=== PATIENT | male | born 1960 | race Caucasian/White ===

== ENCOUNTER 2017-06-19 07:51 | Outpatient (RCR) | payer BC | END 2017-09-17 | disposition home or self-care (01) | LOC: DSME 07:51 | PROVIDERS: ATTEND Nurse Practitioner Family | DX: E11.9 Type 2 diabetes mellitus without complications (principal); Z79.84 Long term (current) use of oral hypoglycemic drugs ==

== ENCOUNTER 2017-06-26 11:30 | Outpatient (CLI) | payer BC ==
[~2017-06-26] VITALS: Ht 185.4 cm; Wt 113.9 kg
== END 2017-06-26 12:24 ==
LOC: PREOP 11:30
PROVIDERS: ATTEND Surgery
DX: Z01.818 Encounter for other preprocedural examination (principal)

== ENCOUNTER 2019-01-12 05:45 | Outpatient (CLI) | payer BC ==
[~2019-01-12] VITALS: Ht 186 cm; Wt 116.8 kg
[2019-01-12] MEDS ORDERED: METF-397 PO (12:17)
== END 2019-01-12 12:19 ==
LOC: PREOP 05:45
PROVIDERS: ATTEND Internal Medicine
DX: Z01.818 Encounter for other preprocedural examination (principal)

== ENCOUNTER 2019-01-16 08:52 | Day surgery (SDC) | payer BC ==
--- NOTE | 2019-01-06 21:04 | HISTORY AND PHYSICAL ---
DATE OF SERVICE: COLONOSCOPY HISTORY AND PHYSICAL DATE OF ADMISSION: 01/16/2019. HISTORY: The patient is a 58-year-old white male referred by Dr. Shelton for his first screening colonoscopy. He is deemed to be of average risk. He is not aware of any family history of colon cancer or colon polyps. He denies any bowel habit change. On rare occasions, he has had some small volume bright red blood per rectum that has been over six months since his last occurrence and he has attributed to hemorrhoids. He has had no abdominal pain, rectal pain or problems with constipation or diarrhea. PAST MEDICAL HISTORY: Significant for type 2 diabetes mellitus for which he takes metformin 500 mg b.i.d., his only prescription medication. PAST SURGICAL HISTORY: He reports no past surgeries. He has had several dental extractions without bleeding problems or difficulty. He takes no antiplatelets or nonsteroidal medication. SOCIAL HISTORY: He is employed with no past smoking and only occasional alcohol intake. FAMILY HISTORY: Father is living at the age of 82, no significant health problems. Mother living at the age of 78 and has had significant problems with diverticular disease and several perforations that have required surgical resection. REVIEW OF SYSTEMS: CONSTITUTIONAL: The patient denies night sweats, chills, fever or change in weight. GASTROINTESTINAL: As noted in the HPI. PULMONARY: He denies cough, dyspnea on exertion or at rest or wheezing. CARDIOVASCULAR: He denies orthopnea, PND, pedal edema, syncope, presyncope or palpitations. PHYSICAL EXAMINATION: GENERAL: Reveals a pleasant overweight white male in no acute distress. VITAL SIGNS: Weight is 257.4 pounds. Blood pressure 118/80. HEENT: Unremarkable. He has a Mallampati 2 pharyngeal configuration. CHEST: Clear to auscultation. CARDIOVASCULAR: Revealed a regular rate and rhythm without murmur, S3 or S4. ABDOMEN: Soft, supple without mass, organomegaly or tenderness. A small umbilical hernia easily reducible as noted with no tenderness. EXTREMITIES: Reveal no cyanosis, clubbing or edema. ASSESSMENT AND PLAN: The patient is set up for screening colonoscopy on 01/16/2019. Prep instructions with the Suprep kit were given and questions were answered. I thank you for the referral of this pleasant gentleman. Job ID: [id number] DocumentID: [id number] Dictated Date: 01/02/2019 09:02:11 Associate Engineer Date: 01/02/2019 09:19:52 Dictated By: SAPNA MCNULTY MD
[~2019-01-16] VITALS: Ht 186 cm; Wt 116.8 kg
[2019-01-16] VITALS (11 sets, daily range): BP systolic 106–123; BP diastolic 68–80
[~2019-01-16 08:52] MED LIST: METF-397 PO
[2019-01-16] MEDS ORDERED: D5 LR IV SOLUTION 1,000 ML IV ONE (09:22)
[2019-01-16] MEDS ORDERED: D5 LR IV SOLUTION 1,000 ML IV STA (09:34)
[2019-01-16] MEDS ORDERED: fentaNYL INJECTION 100 MCG/2 ML AMP IVP ONE (09:45)
[2019-01-16] MEDS ORDERED: fentaNYL INJECTION 100 MCG/2 ML AMP ONE (10:12)
[2019-01-16] MEDS ORDERED: LIDOCAINE JELLY 2% 6 ML SYRINGE ONE (10:12)
[2019-01-16] MEDS ORDERED: MIDAZOLAM 2 MG/2 ML (VERSED) VIAL ONE ×2 (10:12→10:23)
--- NOTE | 2019-01-16 10:24 | Pre-Op Note & Conscious Sedat ---
Pre-Operative Progress Note H&P Reviewed The H&P was reviewed, patient examined and no changes noted. Date H&P Reviewed: Jan 16, 2019 Time H&P Reviewed: 10:10 Conscious Sedation Pre-Proced ASA Score 2 For ASA 3 and 4: Consider anesthesia and medical clearance. Also, for patients with a history of failed moderate sedation consider anesthesia. Airway Lungs Heart ASA score ASA 1: a normal healthy patient ASA 2: a patient with a mild systemic disease (mid diabetes, controlled hypertension, obesity ASA 3: a patient with a severe systemic disease that limits activity (angina, COPD, prior Myocardial infarction) ASA 4: a patient with an incapacitating disease that is a constant threat to life (CHF, renal failure) ASA 5: a moribund patient not expected to survive 24 hrs. (ruptured aneurysm) ASA 6: a declared brain- patient whose organs are being harvested. For emergent operations, add the letter E after the classification Mallampati Classification Grade 2 Sedation Plan Analgesia, Amnesia, Plan communicated to team members, Discussed options with patient/fam, Discussed risks with patient/fam The patient is an appropriate candidate to undergo the planned procedure, sedation, and anesthesia. The patient immediately re-assessed prior to indication. SAPNA MCNULTY MD Jan 16, 2019 10:24 POS
[2019-01-16] MEDS: MIDAZOLAM 5 MG/5 ML (VERSED) VIAL IV PRN ×2 (10:30→10:33)
--- NOTE | 2019-01-16 21:58 | OPERATIVE REPORT ---
DATE OF SERVICE: COLONOSCOPY SUMMARY INDICATION FOR THE PROCEDURE: Screening colonoscopy. DESCRIPTION OF PROCEDURE: The patient was placed in the left lateral decubitus position. Prior to undergoing colonoscopy, digital rectal evaluation was performed. Anal sphincter tone was normal and the perianal reflexes intact. Prostate is normal in size, anodular, nontender to digital inspection. No abnormalities, no additional inspection of the anal canal or distal rectal vault. The colonoscope was then inserted into the rectum and under direct visualization advanced to cecum. The cecum was identified by identification of the ileocecal valve and cecal strap. Photographic documentation was obtained. Careful inspection was made as colonoscope withdrawn. The patient tolerated the procedure well. FINDINGS: There was no evidence for internal or external hemorrhoids. Present in the mid rectum was a hyperplastic-appearing polyp was photographed and biopsied and ablated with no subsequent blood loss. The remainder of the rectum, sigmoid colon, descending colon, splenic flexure and transverse colon were unremarkable. Present in the mid ascending colon was a sessile 4 x 5 mm polyp that was photographed and biopsied and ablated and submitted for histopathology. The remainder of the ascending colon and cecum were unremarkable. ASSESSMENT: Two small polyps were removed, one from the mid rectum and the other from the proximal ascending colon via hot forceps. Neither polyp had visual features to suggest underlying adenomas. As long as there are no surprise on histopathology report, we would advise consideration for repeat screening colonoscopy in 10 years as the patient reports no family history for colon cancer. I thank you for the referral of this pleasant gentleman. Job ID: [id number] DocumentID: [id number] Dictated Date: 01/16/2019 11:48:49 Trimmer Sawyer Date: 01/16/2019 21:57:58 Dictated By: SAPNA MCNULTY MD
--- OUTSIDE RECORDS SUMMARY | 2019-02-11 11:05 | XMS REPORT | Continuity of Care Document ---
Author Organization Unknown Address Unknown Phone Unavailable Allergies Active Description Code Type Severity Reaction Onset Reported/Identified Relationship to Patient Clinical Status Yes No Known Drug Allergies [id number] Drug Allergy Unknown N/A 06/26/2017 Medications There is no data. Problems Date Dx Coded Attending Type Code Diagnosis Diagnosed By 06/25/2017 JACKIE WHATLEY, LES Sharma Ot Z01.818 ENCOUNTER FOR OTHER PREPROCEDURAL EXAMIN 06/26/2017 JACKIE WHATLEY, LES Sharma Ot Z01.818 ENCOUNTER FOR OTHER PREPROCEDURAL EXAMIN 06/26/2017 JACKIE WHATLEY, LES Sharma Ot Z01.818 ENCOUNTER FOR OTHER PREPROCEDURAL EXAMIN 06/27/2017 JACKIE WHATLEY, LES Sharma Ot Z01.818 ENCOUNTER FOR OTHER PREPROCEDURAL EXAMIN 06/27/2017 JACKIE WHATLEY, LES Sharma Ot Z01.818 ENCOUNTER FOR OTHER PREPROCEDURAL EXAMIN 07/24/2017 ANDREE HUNT CUSTOMS CONSULTANT Ot E11.9 TYPE 2 DIABETES MELLITUS WITHOUT COMPLIC 07/24/2017 ANDREE HUNT CUSTOMS CONSULTANT Ot Z79.84 PIPELAYING [employer]TER (CURRENT) USE OF ORAL HYPOGLYC 09/17/2017 ANDREE HUNT CUSTOMS CONSULTANT Ot E11.9 TYPE 2 DIABETES MELLITUS WITHOUT COMPLIC 09/17/2017 ANDREE HUNT CUSTOMS CONSULTANT Ot Z79.84 [facility] (CURRENT) USE OF ORAL HYPOGLYC 08/27/2018 Ot E11.9 TYPE 2 DIABETES MELLITUS WITHOUT COMPLIC 08/27/2018 Ot Z79.84 [facility] (CURRENT) USE OF ORAL HYPOGLYC 09/05/2018 Ot E11.9 TYPE 2 DIABETES MELLITUS WITHOUT COMPLIC 09/05/2018 Ot Z79.84 RALPH [facility] TERM (CURRENT) USE OF ORAL HYPOGLYC 2019 SAPNA MCNULTY MD Ot Z01.818 ENCOUNTER FOR OTHER PREPROCEDURAL EXAMIN 01/13/2019 SAPNA MCNULTY MD Ot Z01.818 ENCOUNTER FOR OTHER PREPROCEDURAL EXAMIN 01/16/2019 Ot E11.9 TYPE 2 DIABETES MELLITUS WITHOUT COMPLIC 01/16/2019 Ot Z79.84 RALPH G TERM (CURRENT) USE OF ORAL HYPOGLYC Procedures There is no data. Results There is no data. Encounters ACCT No. Visit Date/Time Discharge Status Pt. Type Provider Facility Loc./Unit Complaint [id number] 01/16/2019 08:52:00 11:30:00 DIS Outpatient SAPNA MCNULTY MD [facility] ENDO SCREENING [id number] 2019 05:45:00 12:19:00 DIS Outpatient SAPNA MCNULTY MD [facility] PREOP COLONOSCOPY [id number] 07/01/2017 08:30:00 23:59:59 CLS Preadmit LES MEJIA MD [facility] ENDO SCREENING [id number] 06/26/2017 11:30:00 12:24:00 DIS Outpatient LES MEJIA MD [facility] PREOP COLONOSCOPY [id number] 06/19/2017 07:51:00 23:59:59 CLS Outpatient ANDREE HUNT APRN [facility] DSME DIABETES MELLITUS [id number] 03/14/2017 12:03:00 23:59:59 CLS Preadmit ROSA MIMS MD [facility] REHAB LT SHOULDER PAIN; HOME EXERCISE [id number] 09/18/2017 08:00:00 Document Registration
== END 2019-01-16 11:30 | disposition home or self-care (01) ==
LOC: ENDO 08:52
PROVIDERS: ATTEND Internal Medicine
DX: Z12.11 Encounter for screening for malignant neoplasm of colon (principal); K62.1 Rectal polyp; K63.5 Polyp of colon; E11.9 Type 2 diabetes mellitus without complications; Z79.84 Long term (current) use of oral hypoglycemic drugs; Z83.79 Family history of other diseases of the digestive system
CPT/HCPCS: 88305

== ENCOUNTER 2020-10-25 13:42 | Emergency (ER) | payer BC ==
[~2020-10-25] VITALS: Ht 185 cm; Wt 111.0 kg
[2020-10-25] MEDS ORDERED: NS IV 1000 ML 1,000 ML IV STA (13:53)
[2020-10-25 14:00] LABS: BILIRUBIN,URINE NEGATIVE (NEGATIVE); CLARITY,URINE CLEAR; COLOR,URINE YELLOW; GLUCOSE, URINE (UA) NEGATIVE (NEGATIVE); KETONES,URINE NEGATIVE (NEGATIVE); LEUKOCYTE ESTERASE ,URINE NEGATIVE (NEGATIVE); NITRITE,URINE NEGATIVE (NEGATIVE); PH,URINE 5.5 (5-9); PROTEIN,URINE NEGATIVE (NEGATIVE)
--- NOTE | 2020-10-25 14:10 | ED Back Pain ---
General Chief Complaint: Back Problems Stated Complaint: BACK PAIN Source of Information: Patient History of Present Illness Date Seen by Provider: Oct 25, 2020 Time Seen by Provider: 13:43 Initial Comments 60-year-old male presenting with complaints of right flank pain wrapping around to his abdomen. He states that he had some similar symptoms for 5 days ago but they were relieved with Gas-X and belching. Today the symptoms started as a returning back from [place]. His pain kept getting worse and worse as he was driving to the point that he had to veneer puller his drive. At 1 point he was on his hands and knees in the back of the vehicle because I was still in position and felt comfortable. His pain did improve some with belching. Then it became unbearable where he had to have his veneer puller and they called EMS to bring him to the ER. He has no black or tarry stools. He denies any blood in the urine but states it has been more dark especially few days ago after the previous episode. He denies any nausea or vomiting. He denies any history of surgery on his belly and has no history of kidney stones for himself or his family that he knows of. No fever or chills. His pain was over [address] but currently is discomfort that he rates at 1 or 2 out of 10. He did receive narcotic medication from EMS to help with his pain. Severity: Severe Method of Injury: Unknown Associated Symptoms: No muscle spasms, No fever, No weakness, No numbness in legs/feet, No tingling in legs/feet, No sensory/motor loss, No lower back pain, No loss of bladder control, No loss of bowel control Allergies and Home Medications Allergies Coded Allergies: No Known Drug Allergies (Unverified , 06/26/17) Patient Home Medication List Home Medication List Reviewed: Yes Hydrocodone/Acetaminophen (Hydrocodone-Acetamin 5-325 mg) 1 Each Tablet, 1 TAB PO Q4H PRN for PAIN-SEVERE (8-10) Prescribed by: SERGO JACOBSEN on 10/25/20 1520 Metformin HCl (Metformin HCl) 500 Mg Tablet, 500 MG PO BID, (Reported) Entered as Reported by: MARQUES HOWELL on 01/12/19 1217 Ondansetron (Ondansetron Odt) 4 Mg Tab.rapdis, 4 MG PO Q6H PRN for NAUSEA/VOMITING Prescribed by: SERGO JACOBSEN on 10/25/20 151 Tamsulosin HCl (Flomax) 0.4 Mg Cap, 0.4 MG PO DAILY Prescribed by: SERGO JACOBSEN on 10/25/20 151 Review of Systems Constitutional: No chills, No fever EENTM: no symptoms reported Respiratory: no symptoms reported Cardiovascular: no symptoms reported Gastrointestinal: see HPI Genitourinary: see HPI Musculoskeletal: see HPI Skin: No change in color Psychiatric/Neurological: No Symptoms Reported Past Qymsfzs-Tbcilz-Lyzdep Hx Patient Social History Tobacco Use?: No Use of E-Cig and/or Vaping dev: No Substance use?: No Alcohol Use?: No Pt feels they are or have been: No Immunizations Up To Date First/Initial COVID19 Vaccinat: Mar 2020 Seasonal Allergies Seasonal Allergies: No Past Medical History Surgeries: No Respiratory: No Cardiac: No Neurological: No Reproductive Disorders: No Sexually Transmitted Disease: No HIV/AIDS: No Genitourinary: No Gastrointestinal: No Musculoskeletal: No Endocrine: Yes Diabetes, Non-Insulin dep HEENT: No Loss of Vision: Bilateral Hearing Impairment: Denies Cancer: No Psychosocial: No Integumentary: No Blood Disorders: No Adverse Reaction/Blood Tranf: No (N/A) Physical Exam Vital Signs Vital Signs - First Documented 10/25/20 13:54 Temp 36.0 Pulse 88 Resp 16 B/P (MAP) 152/81 (104) Pulse Ox 94 O2 Delivery Room Air Capillary Refill : Height, Weight, BMI Height: 6'1.00" Weight: 251lbs. 0.0oz. 113.385026vl; 33.76 BMI Method: General Appearance: No Apparent Distress, WD/WN Neck: Full Range of Motion, Normal Inspection, Non Tender, Supple Cardiovascular: Regular Rate, Rhythm, Normal Peripheral Pulses Respiratory: Chest Non Tender, Lungs Clear, Normal Breath Sounds, No Accessory Muscle Use, No Respiratory Distress Gastrointestinal: Normal Bowel Sounds, No Pulsatile Mass, Non Tender, Soft Extremity: Normal Capillary Refill, Normal Inspection, No Pedal Edema Neurologic/Psychiatric: Alert, Oriented x3 Skin: Normal Color, Warm/Dry Progress/Results/Core Measures Results/Orders Lab Results Laboratory Tests Test 10/25/20 13:47 10/25/20 13:51 Range/Units Urine Color YELLOW Urine Clarity CLEAR Urine pH 5.5 5-9 Urine Specific [place] >=1.030 1.016-1.022 Urine Protein NEGATIVE NEGATIVE Urine Glucose (UA) NEGATIVE NEGATIVE Urine Ketones NEGATIVE NEGATIVE Urine Nitrite NEGATIVE NEGATIVE Urine Bilirubin NEGATIVE NEGATIVE Urine Urobilinogen 0.2 < = 1.0 MG/DL Urine Leukocyte Esterase NEGATIVE NEGATIVE Urine RBC (Auto) 3+ H NEGATIVE Urine RBC 2-5 H /HPF Urine WBC 0-2 /HPF Urine Squamous Epithelial Cells RARE /HPF Urine Crystals NONE /LPF Urine Bacteria NEGATIVE /HPF Urine Casts NONE /LPF Urine Mucus SMALL H /LPF Urine Culture Indicated NO White Blood Count 8.1 4.3-11.0 10^3/uL Red Blood Count 4.65 4.30-5.52 10^6/uL Hemoglobin 14.4 13.3-17.7 g/dL Hematocrit 41 40-54 % Mean Corpuscular Volume 87 80-99 fL Mean Corpuscular Hemoglobin 31 25-34 pg Mean Corpuscular Hemoglobin Concent 36 32-36 g/dL Red Cell Distribution Width 13.0 10.0-14.5 % Platelet Count 291 130-400 10^3/uL Mean Platelet Volume 9.5 9.0-12.2 fL Immature Granulocyte % (Auto) 0 % Neutrophils (%) (Auto) 66 42-75 % Lymphocytes (%) (Auto) 21 12-44 % Monocytes (%) (Auto) 10 0-12 % Eosinophils (%) (Auto) 2 0-10 % Basophils (%) (Auto) 1 0-10 % Neutrophils # (Auto) 5.4 1.8-7.8 X 10^3 Lymphocytes # (Auto) 1.7 1.0-4.0 X 10^3 Monocytes # (Auto) 0.8 0.0-1.0 X 10^3 Eosinophils # (Auto) 0.1 0.0-0.3 10^3/uL Basophils # (Auto) 0.1 0.0-0.1 10^3/uL Immature Granulocyte # (Auto) 0.0 0.0-0.1 10^3/uL Sodium Level 141 135-145 MMOL/L Potassium Level 4.3 3.6-5.0 MMOL/L Chloride Level 104 98-107 MMOL/L Carbon Dioxide Level 26 21-32 MMOL/L Anion Gap 11 5-14 MMOL/L Blood Urea Nitrogen 18 7-18 MG/DL Creatinine 0.83 0.60-1.30 MG/DL Estimat Glomerular Filtration Rate 94 BUN/Creatinine Ratio 22 Glucose Level 124 H 70-105 MG/DL Calcium Level 9.4 8.5-10.1 MG/DL Corrected Calcium 8.5-10.1 MG/DL Total Bilirubin 0.4 0.1-1.0 MG/DL Aspartate Amino Transf (AST/SGOT) 22 5-34 U/L Alanine Aminotransferase (ALT/SGPT) 20 0-55 U/L Alkaline Phosphatase 80 40-136 U/L Total Protein 7.5 6.4-8.2 GM/DL Albumin 4.6 H 3.2-4.5 GM/DL Lipase 24 8-78 U/L My Orders Orders - SERGO JACOBSEN MD Comprehensive Metabolic Panel (10/25/20 13:53) Lipase (10/25/20 13:53) Ua Culture If Indicated (10/25/20 13:53) Ed Iv/Invasive Line Start (10/25/20 13:53) Cbc With Automated Diff (10/25/20 13:53) Ct Abdomen/Pelvis Wo (10/25/20 13:53) Ns Iv 1000 Ml (Sodium Chloride 0.9%) (10/25/20 13:53) Ketorolac Injection (Toradol Injection) (10/25/20 15:08) Tamsulosin Capsule (Flomax Capsule) (10/25/20 15:08) Hydrocodone/Apap 5/325 Tablet (Lortab 5 (10/25/20 15:08) Fentanyl Inj (Sublimaze Injection) (10/25/20 15:08) Strain Urine (10/25/20 15:09) Vital Signs/I&O 10/25/20 10/25/20 10/25/20 13:54 15:19 15:42 Temp 36.0 36.0 36.0 Pulse 88 88 Resp 16 16 B/P (MAP) 152/81 (104) 152/81 Pulse Ox 94 94 O2 Delivery Room Air Room Air Progress Progress Note #1: Progress Note Obtain basic labs as well as urinalysis. Give IV fluids for hydration. CT scan of abdomen pelvis to evaluate his right flank pain to see if he might have a kidney stone, colitis, diverticulitis, appendicitis, pyelonephritis. If his p ain starts to back will try dose of Toradol. Progress Note #2: Progress Note Updated patient on results and findings of 4 mm kidney stone in the ureter on the right side. There were no signs of infection in his urinalysis. Patient stated he was started to have some pain, back and his IV fluids and just finished infusing. We will give a dose of Toradol, fentanyl, hydrocodone, Flomax. Counseled on follow-up and return precautions. Sent prescriptions to the pharmacy for outpatient meds of hydrocodone, Zofran if needed for nausea, Flomax. Given information about Dr. Valente with Urology. Advised that he also h as a stone sitting in kidney on left side but that it may never give him pain or may hurt if it starts moving into ureter. Diagnostic Imaging Diagonstic Imaging: CT Plain Films/CT/US/NM/MRI: abdomen, pelvis Comments NAME: SAUD MENDO[facility] REC#: [id number] PT STATUS: REG ER : 1960 PHYSICIAN: SERGO JACOBSEN MD ADMIT DATE: 10/25/20/ER FS Draft Date of Exam:10/25/20 CT ABDOMEN/PELVIS WO PROCEDURE: CT abdomen and pelvis without contrast. TECHNIQUE: Multiple contiguous axial images were obtained through the abdomen and pelvis without the use of intravenous contrast. Auto Exposure Controls were utilized during the CT exam to meet ALARA standards for radiation dose reduction. INDICATION: Severe right flank pain. COMPARISON: No prior studies are available for comparison. FINDINGS: The lung bases are clear. The liver and gallbladder are unremarkable. There is no biliary ductal dilatation. The pancreas and spleen are unremarkable. No adrenal mass is detected. The right kidney is without evidence of intrarenal calculi. There is a calculus in the lower pole of the left kidney measuring 7 mm. This appears nonobstructing. There is some mild right-sided hydroureteronephrosis. This appears to be caused by 4 mm calculus at the junction of the proximal and mid ureter. The left ureter is unremarkable. The bladder is unremarkable. Aorta is nonaneurysmal. Bowel loops are nonobstructed. There is a fat-containing umbilical hernia. No free fluid or fluid collection is seen. Prostate is mildly enlarged. There are fat-containing inguinal hernias bilaterally. Bony structures are nonacute. IMPRESSION: 1. Nonobstructing left-sided nephrolithiasis. 2. 4 mm calculus at the junction of the proximal and mid right ureter, producing mild hydroureteronephrosis. 3. Fat-containing umbilical and bilateral inguinal hernias. 4. Prostatomegaly. Dictated on workstation # [id number] Dict: 10/25/20 1417 Trans: 10/25/20 1424 [id number] Interpreted by: CLEO BRAR MD Electronically signed by: Departure Impression Primary Impression: Renal colic on right side Additional Impressions: Right flank pain Ureteral calculus, right Dehydration Disposition: 01 HOME, SELF-CARE Condition: Stable Departure-Patient Inst. Decision time for Depature: 15:21 Referrals: JOSEPH LAZO MD (PCP/Family) Primary Care Physician BELKIS VALENTE MD Patient Instructions: Flank Pain ED, Kidney Stone Diet, How to Strain Your Urine, Kidney Stone, Adult ED Add. Discharge Instructions: Strain your urine to see when you pass the kidney stone. It will look like a grain of sand or anton of pepper. Use the pain medicine, Hydrocodone/Acetaminophen, to help keep your pain to a level that you can tolerate. You will have pain as the stone is moving and it is only shelter from the kidney to the bladder. Consider taking a laxative if you have to take very much of the narcotic pain medicine as it can cause your bowels to be constipated. Make sure to drink plenty of water and stay well hydrated. The Tamsulosin (Flomax) helps the ureter and prostate relax so the kidney stone can pass easier. Check with your doctor or Urologist, Dr. Valente, for continued pain or if not resolved after a few days. If you have worsening pain not controlled by your medicine, uncontrolled nausea and vomiting, fever over 101 F then seek medical care for further evaluation. All discharge instructions reviewed with patient and/or family. Voiced understanding. Scripts Ondansetron (Ondansetron Odt) 4 Mg Tab.rapdis 4 MG PO Q6H PRN for NAUSEA/VOMITING for 5 Days, #20 TAB 0 Refills Prov: SERGO JACOBSEN MD 10/25/20 Hydrocodone/Acetaminophen (Hydrocodone-Acetamin 5-325 mg) 1 Each Tablet 1 TAB PO Q4H PRN for PAIN-SEVERE (8-10) for 5 Days, #30 TAB 0 Refills Prov: SERGO JACOBSEN MD 10/25/20 Tamsulosin HCl (Flomax) 0.4 Mg Cap 0.4 MG PO DAILY for renal colic for 7 Days, #7 CAP 0 Refills Prov: SERGO JACOBSEN MD 10/25/20 SERGO JACOBSEN MD Oct 25, 2020 14:10
[2020-10-25 14:25] LABS: HEMATOCRIT 41 % (40-54); HEMOGLOBIN 14.4 g/dL (13.3-17.7); MEAN CORPUSCULAR HEMOGLOBIN 31 pg (25-34); MEAN CORPUSCULAR HGB CONC 36 g/dL (32-36); MEAN CORPUSCULAR VOLUME 87 fL (80-99); PLATELET COUNT 291 10^3/uL (130-400); WHITE BLOOD COUNT 8.1 10^3/uL (4.3-11.0)
--- NOTE | 2020-10-25 14:25 | Diagnostic Imaging Report ---
PROCEDURE: CT abdomen and pelvis without contrast. TECHNIQUE: Multiple contiguous axial images were obtained through the abdomen and pelvis without the use of intravenous contrast. Auto Exposure Controls were utilized during the CT exam to meet ALARA standards for radiation dose reduction. INDICATION: Severe right flank pain. COMPARISON: No prior studies are available for comparison. FINDINGS: The lung bases are clear. The liver and gallbladder are unremarkable. There is no biliary ductal dilatation. The pancreas and spleen are unremarkable. No adrenal mass is detected. The right kidney is without evidence of intrarenal calculi. There is a calculus in the lower pole of the left kidney measuring 7 mm. This appears nonobstructing. There is some mild right-sided hydroureteronephrosis. This appears to be caused by 4 mm calculus at the junction of the proximal and mid ureter. The left ureter is unremarkable. The bladder is unremarkable. Aorta is nonaneurysmal. Bowel loops are nonobstructed. There is a fat-containing umbilical hernia. No free fluid or fluid collection is seen. Prostate is mildly enlarged. There are fat-containing inguinal hernias bilaterally. Bony structures are nonacute. IMPRESSION: 1. Nonobstructing left-sided nephrolithiasis. 2. 4 mm calculus at the junction of the proximal and mid right ureter, producing mild hydroureteronephrosis. 3. Fat-containing umbilical and bilateral inguinal hernias. 4. Prostatomegaly. Dictated by: Dictated on workstation # [id number]
[2020-10-25 14:26] LABS: BASOPHILS # (AUTO) 0.1 10^3/uL (0.0-0.1); BASOPHILS % (AUTO) 1 % (0-10); EOSINOPHILS # (AUTO) 0.1 10^3/uL (0.0-0.3); EOSINOPHILS % (AUTO) 2 % (0-10); LYMPHOCYTES # (AUTO) 1.7 X 10^3 (1.0-4.0); LYMPHOCYTES % (AUTO) 21 % (12-44); MEAN PLATELET VOLUME 9.5 fL (9.0-12.2); MONOCYTES # (AUTO) 0.8 X 10^3 (0.0-1.0); MONOCYTES % (AUTO) 10 % (0-12); NEUTROPHILS # (AUTO) 5.4 X 10^3 (1.8-7.8); NEUTROPHILS % (AUTO) 66 % (42-75)
[2020-10-25 14:35] LABS: BACTERIA,URINE NEGATIVE /HPF; SQUAMOUS EPITHELIAL CELL,UR RARE /HPF; WBC,URINE 0-2 /HPF
[2020-10-25 14:37] LABS: CARBON DIOXIDE 26 MMOL/L (21-32); CHLORIDE 104 MMOL/L (98-107); SODIUM 141 MMOL/L (135-145)
[2020-10-25 14:38] LABS: ALANINE AMINOTRANSFERASE 20 U/L (0-55); ALBUMIN 4.6 GM/DL (3.2-4.5); ALKALINE PHOSPHATASE 80 U/L (40-136); BILIRUBIN,TOTAL 0.4 MG/DL (0.1-1.0); BUN/CREATININE RATIO 22; CALCIUM 9.4 MG/DL (8.5-10.1); CREATININE SERUM 0.83 MG/DL (0.60-1.30); GFR ESTIMATED 94; GLUCOSE 124 MG/DL (70-105); LIPASE 24 U/L (8-78); TOTAL PROTEIN 7.5 GM/DL (6.4-8.2)
[2020-10-25 14:42] LABS: POTASSIUM 4.3 MMOL/L (3.6-5.0)
[2020-10-25] MEDS ORDERED: HYDROcodone/APAP 5 MG/325 MG (LORTAB) TAB PO STA (15:08)
[2020-10-25] MEDS ORDERED: TAMSULOSIN 0.4 MG (FLOMAX) CAP PO STA (15:08)
[2020-10-25] MEDS ORDERED: KETOROLAC 30 MG/ML VIAL IVP STA (15:08)
[2020-10-25] MEDS ORDERED: fentaNYL INJ 100 MCG/2 ML AMP IVP STA (15:08)
[2020-10-25] MEDS ORDERED: ONDA4TAB11 PO (15:19)
[2020-10-25] MEDS ORDERED: TMSL.4C PO (15:19)
[2020-10-25] MEDS ORDERED: ACHD5005 PO (15:19)
[2020-10-25 15:42] VITALS: BP 152/81
[2020-10-26] MEDS ORDERED: CEPH500T PO (09:57)
[2020-10-26] MEDS ORDERED: ACHYD1T PO (09:57)
== END 2020-10-25 15:33 | disposition home or self-care (01) ==
LOC: EDUNIT# 13:42 → ER FS 13:44
DX: N13.2 Hydronephrosis with renal and ureteral calculous obstruction (principal); N23 Unspecified renal colic; E86.0 Dehydration; E11.9 Type 2 diabetes mellitus without complications; Z79.84 Long term (current) use of oral hypoglycemic drugs; Z79.899 Other long term (current) drug therapy
CPT/HCPCS: 36415; 74176; 80053; 81000; 83690; 85025

== ENCOUNTER 2020-10-26 08:20 | Emergency (ER) | payer BC ==
[~2020-10-26] VITALS: Ht 182 cm; Wt 111.0 kg
[~2020-10-26 08:20] MED LIST changes: +ACHD5005 PO; +ONDA4TAB11 PO; +TMSL.4C PO
--- NOTE | 2020-10-26 08:37 | ED GU-Male ---
General Stated Complaint: KIDNEY STONES Source: patient, spouse Exam Limitations: no limitations History of Present Illness Date Seen by Provider: Oct 26, 2020 Time Seen by Provider: 08:21 Initial Comments Patient presents ER by private conveyance from home with chief complaint of a sharp onset of pain in his back right flank couple days ago radiating down now into his right lower quadrant abdomen/groin. He is seen in the ER at [place] yesterday and given some pain medicine and strainer and Flomax. He had a CT that demonstrated a 4 mm calculus in his right ureter and another stone up in his kidney. He rates the pain is very significant and states that the pain medicine they sent him home with. He says it is inadequate small amount of pain relief for about 1 hour. Patient is not on antibiotics. Allergies and Home Medications Allergies Coded Allergies: No Known Drug Allergies (Unverified , 06/26/17) Patient Home Medication List Home Medication List Reviewed: Yes Hydrocodone/Acetaminophen (Hydrocodone-Acetamin 5-325 mg) 1 Each Tablet, 1 TAB PO Q4H PRN for PAIN-SEVERE (8-10) Prescribed by: SERGO JACOBSEN on 10/25/20 1520 Metformin HCl (Metformin HCl) 500 Mg Tablet, 500 MG PO BID, (Reported) Entered as Reported by: MARQUES HOWELL on 01/12/19 1217 Ondansetron (Ondansetron Odt) 4 Mg Tab.rapdis, 4 MG PO Q6H PRN for NAUSEA/VOMITING Prescribed by: SERGO JACOBSEN on 10/25/20 1519 Tamsulosin HCl (Flomax) 0.4 Mg Cap, 0.4 MG PO DAILY Prescribed by: SERGO JACOBSEN on 10/25/20 1519 Review of Systems Review of Systems Constitutional: No chills, No diaphoresis EENTM: No ear discharge, No ear pain Respiratory: No cough, No short of breath Cardiovascular: No chest pain, No edema Gastrointestinal: No abdominal pain, No nausea, No vomiting Genitourinary: denies discharge, denies dysuria Musculoskeletal: No back pain, No joint pain All Other Systemes Reviewed Negative Unless Noted: Yes Past Tpjxgbw-Ixenor-Mxpoyw Hx Patient Social History Tobacco Use?: No Use of E-Cig and/or Vaping dev: No Substance use?: No Immunizations Up To Date First/Initial COVID19 Vaccinat: Mar 2020 Seasonal Allergies Seasonal Allergies: No Past Medical History Surgeries: No Respiratory: No Cardiac: No Neurological: No Reproductive Disorders: No Sexually Transmitted Disease: No HIV/AIDS: No Genitourinary: No Gastrointestinal: No Musculoskeletal: No Endocrine: Yes Diabetes, Non-Insulin dep HEENT: No Loss of Vision: Bilateral Hearing Impairment: Denies Cancer: No Psychosocial: No Integumentary: No Blood Disorders: No Adverse Reaction/Blood Tranf: No (N/A) Physical Exam Vital Signs Vital Signs - First Documented 10/26/20 08:24 Temp 36.0 Pulse 90 Resp 18 B/P (MAP) 139/84 (102) Pulse Ox 95 Capillary Refill : Height, Weight, BMI Height: 6'1.00" Weight: 251lbs. 0.0oz. [id number]; 32.00 BMI Method: General Appearance: WD/WN, moderate distress HEENT: PERRL/EOMI, pharynx normal Neck: full range of motion, normal inspection Cardiovascular: normal peripheral pulses, regular rate, rhythm Respiratory: lungs clear, normal breath sounds, no respiratory distress, no accessory muscle use Gastrointestinal: normal bowel sounds, soft, no organomegaly; No rebound; tenderness (Right lower quadrant mild tenderness to palpation but not over McBurney's point.) Back: CVA tenderness (R) Neurologic/Psychiatric: alert, normal mood/affect, oriented x 3 Skin: normal color, warm/dry Progress/Results/Core Measures Suspected Sepsis SIRS Temperature: Pulse: Respiratory Rate: Laboratory Tests 10/26/20 08:41: White Blood Count 14.6H Blood Pressure / Mean: Laboratory Tests 10/26/20 08:41: Creatinine 1.16, Platelet Count 255 Results/Orders Lab Results Laboratory Tests Test 10/26/20 08:41 10/26/20 09:14 Range/Units White Blood Count 14.6 H 4.3-11.0 10^3/uL Red Blood Count 4.34 4.30-5.52 10^6/uL Hemoglobin 13.5 13.3-17.7 g/dL Hematocrit 39 L 40-54 % Mean Corpuscular Volume 89 80-99 fL Mean Corpuscular Hemoglobin 31 25-34 pg Mean Corpuscular Hemoglobin Concent 35 32-36 g/dL Red Cell Distribution Width 12.6 10.0-14.5 % Platelet Count 255 130-400 10^3/uL Mean Platelet Volume 9.3 9.0-12.2 fL Immature Granulocyte % (Auto) 0 % Neutrophils (%) (Auto) 85 H 42-75 % Lymphocytes (%) (Auto) 6 L 12-44 % Monocytes (%) (Auto) 8 0-12 % Eosinophils (%) (Auto) 0 0-10 % Basophils (%) (Auto) 0 0-10 % Neutrophils # (Auto) 12.4 H 1.8-7.8 10^3/uL Lymphocytes # (Auto) 0.9 L 1.0-4.0 10^3/uL Monocytes # (Auto) 1.2 H 0.0-1.0 10^3/uL Eosinophils # (Auto) 0.0 0.0-0.3 10^3/uL Basophils # (Auto) 0.1 0.0-0.1 10^3/uL Immature Granulocyte # (Auto) 0.1 0.0-0.1 10^3/uL Neutrophils % (Manual) 82 % Lymphocytes % (Manual) 12 % Monocytes % (Manual) 6 % Blood Morphology Comment NORMAL Sodium Level 135 135-145 MMOL/L Potassium Level 4.3 3.6-5.0 MMOL/L Chloride Level 102 98-107 MMOL/L Carbon Dioxide Level 21 21-32 MMOL/L Anion Gap 12 5-14 MMOL/L Blood Urea Nitrogen 17 7-18 MG/DL Creatinine 1.16 0.60-1.30 MG/DL Estimat Glomerular Filtration Rate 64 BUN/Creatinine Ratio 15 Glucose Level 180 H 70-105 MG/DL Calcium Level 9.0 8.5-10.1 MG/DL Urine Color YELLOW Urine Clarity CLEAR Urine pH 6.0 5-9 Urine Specific [place] 1.020 1.016-1.022 Urine Protein NEGATIVE NEGATIVE Urine Glucose (UA) TRACE H NEGATIVE Urine Ketones NEGATIVE NEGATIVE Urine Nitrite NEGATIVE NEGATIVE Urine Bilirubin NEGATIVE NEGATIVE Urine Urobilinogen 1.0 < = 1.0 MG/DL Urine Leukocyte Esterase NEGATIVE NEGATIVE Urine RBC (Auto) 3+ H NEGATIVE Urine RBC 5-10 H /HPF Urine WBC 0-2 /HPF Urine Crystals NONE /LPF Urine Bacteria NEGATIVE /HPF Urine Casts NONE /LPF Urine Mucus NEGATIVE /LPF Urine Culture Indicated NO My Orders Orders - ISADORA,STEPHAN J Ua Culture If Indicated (10/26/20 08:24) Ceftriaxone (Rocephin) (10/26/20 08:45) Ketorolac Injection (Toradol Injection) (10/26/20 08:45) Fentanyl Inj (Sublimaze Injection) (10/26/20 08:45) Cbc And Manual Diff (10/26/20 08:31) Basic Metabolic Panel (10/26/20 08:31) Abdomen/Kub 1view (10/26/20 08:31) Medications Given in ED Current Medications Medications Dose Ordered Sig/Hunter Route Start Time Stop Time Status Last Admin Dose Admin Ceftriaxone Sodium 1000 mg/ Sterile Water 10 ml @ 200 mls/hr ONCE ONCE IV 10/26/20 08:45 10/26/20 08:47 DC 10/26/20 08:53 200 MLS/HR Fentanyl Citrate 50 mcg ONCE ONCE IVP 10/26/20 08:45 10/26/20 08:46 DC 10/26/20 08:51 50 MCG Ketorolac Tromethamine 30 mg ONCE ONCE IVP 10/26/20 08:45 10/26/20 08:46 DC 10/26/20 08:49 30 MG Vital Signs/I&O 10/26/20 08:24 Temp 36.0 Pulse 90 Resp 18 B/P (MAP) 139/84 (102) Pulse Ox 95 Capillary Refill : Progress Note #1: Time: 09:02 Progress Note Review of yesterday CT demonstrates a 4 mm irregular shaped intraureteral stone just superior to the pelvic brim on the right ureter. Associated hydroureter and mild fat stranding with bilateral kidneys noted. Plan to give him some fentanyl, Toradol and check some basic labs. Seems that he is having inadequate pain control and we will attempt to help him with this today. Repeat a plain film of the abdomen and pelvis. Suspect of the kidney stone has moved based on his shifting source of pain. 1 g of Rocephin. Urinalysis Progress Note #2: Time: 09:53 Progress Note The patient's pain is completely resolved. Going to put him on some Keflex for preventative sake and he has already called to get an appointment with Dr. Valente, urology Diagnostic Imaging Diagonstic Imaging: Xray Plain Films/CT/US/NM/MRI: abdomen (1 view KUB) Comments [facility] [place], [place] NAME: SAUD MENDOZA [facility] REC#: [id number] PT STATUS: REG ER : 1960 PHYSICIAN: STEPHAN MUIR MD ADMIT DATE: 10/26/20/ER Draft Date of Exam:10/26/20 ABDOMEN/KUB 1VIEW INDICATION: Right ureteral calculus. Comparison with CT scan of 10/25/2020. FINDINGS: The 4 mm calculus noted in the mid right ureter on previous CT scan is not demonstrated on today's exam. Calculus overlying the lower pole calyx of the left kidney is present and unchanged. IMPRESSION: Right ureteral calculus not identified today. Dictated on workstation # [id number] Dict: 10/26/20915 Trans: 10/26/20920 DEMAR [id number] Interpreted by: JUSTIN FISHMAN MD Electronically signed by: Reviewed: Reviewed by Me Departure Impression Primary Impression: Ureteral calculus, right Disposition: 01 HOME, SELF-CARE Condition: Improved Departure-Patient Inst. Decision time for Depature: 09:50 Referrals: ELIZABET MTZ MD (PCP/Family) Primary Care Physician BELKIS VALENTE MD Patient Instructions: Kidney Stones (DC) Add. Discharge Instructions: Drink plenty of fluids. Continue taking the Flomax daily until the kidney stone passes. Expect your symptoms to improve and resolve 1 to 2 days after the stone passes. Sometimes the stone will break up into fine sand and you will not see it pass. Strain your urine and see if you can catch the stone. You may take it to the urologist and they may test it if you choose. Hydrocodone 10 x 325 1 to 2 tablets every 4 hours as necessary to stay ahead of your pain. Heating pads are helpful. Ibuprofen 800 mg every 8 hours as necessary for pain. Keflex starting tomorrow 1 capsule twice a day for the next 5 days. Follow-up with Dr. Valente, urology. Promptly return to the ER if you are having intractable pain, intractable nausea or other worrisome symptoms. Scripts Hydrocodone Bit/Acetaminophen (HYDROcodone/APAP 10/325 TABLET) 1 Ea Tab 1-2 EA PO Q4H PRN for PAIN-MODERATE (5-7), #20 TAB 0 Refills Prov: STEPHAN MUIR 10/26/20 Cephalexin (Cephalexin) 500 Mg Tablet 500 MG PO BID for 5 Days, #10 TAB 0 Refills Prov: STEPHAN MUIR 10/26/20 Copy Copies To 1: ELIZABET MTZ MD; BELKIS VALENTE MD, TITUS J Oct 26, 2020 08:37
[2020-10-26] MEDS ORDERED: cefTRIAXone 1,000 MG in WATER (STERILE) FOR INJECTION 10 ML IV ONE (08:45)
[2020-10-26] MEDS ORDERED: fentaNYL INJ 100 MCG/2 ML AMP IVP ONE (08:45)
[2020-10-26] MEDS ORDERED: KETOROLAC 30 MG/ML VIAL IVP ONE (08:45)
[2020-10-26 08:56] LABS: BASOPHILS # (AUTO) 0.1 10^3/uL (0.0-0.1); BASOPHILS % (AUTO) 0 % (0-10); EOSINOPHILS % (AUTO) 0 % (0-10); HEMATOCRIT 39 % (40-54); HEMOGLOBIN 13.5 g/dL (13.3-17.7); LYMPHOCYTES # (AUTO) 0.9 10^3/uL (1.0-4.0); LYMPHOCYTES % (AUTO) 6 % (12-44); MEAN CORPUSCULAR HEMOGLOBIN 31 pg (25-34); MEAN CORPUSCULAR HGB CONC 35 g/dL (32-36); MEAN CORPUSCULAR VOLUME 89 fL (80-99); MEAN PLATELET VOLUME 9.3 fL (9.0-12.2); MONOCYTES # (AUTO) 1.2 10^3/uL (0.0-1.0); MONOCYTES % (AUTO) 8 % (0-12); NEUTROPHILS # (AUTO) 12.4 10^3/uL (1.8-7.8); NEUTROPHILS % (AUTO) 85 % (42-75); PLATELET COUNT 255 10^3/uL (130-400); WHITE BLOOD COUNT 14.6 10^3/uL (4.3-11.0)
[2020-10-26 09:09] LABS: CREATININE SERUM 1.16 MG/DL (0.60-1.30); POTASSIUM 4.3 MMOL/L (3.6-5.0)
[2020-10-26 09:17] LABS: LYMPHOCYTES % (MANUAL) 12 %; MONOCYTES % (MANUAL) 6 %; NEUTROPHILS % (MANUAL) 82 %; RBC MORPH NORMAL
--- NOTE | 2020-10-26 09:22 | Diagnostic Imaging Report ---
INDICATION: Right ureteral calculus. Comparison with CT scan of 10/25/2020. FINDINGS: The 4 mm calculus noted in the mid right ureter on previous CT scan is not demonstrated on today's exam. Calculus overlying the lower pole calyx of the left kidney is present and unchanged. IMPRESSION: Right ureteral calculus not identified today. Dictated by: Dictated on workstation # [id number]
[2020-10-26 09:25] LABS: BILIRUBIN,URINE NEGATIVE (NEGATIVE); CLARITY,URINE CLEAR; COLOR,URINE YELLOW; GLUCOSE, URINE (UA) TRACE (NEGATIVE); KETONES,URINE NEGATIVE (NEGATIVE); LEUKOCYTE ESTERASE ,URINE NEGATIVE (NEGATIVE); NITRITE,URINE NEGATIVE (NEGATIVE); PROTEIN,URINE NEGATIVE (NEGATIVE)
[2020-10-26 09:42] LABS: BACTERIA,URINE NEGATIVE /HPF; WBC,URINE 0-2 /HPF
[2020-10-26] MEDS ORDERED: ACHYD1T PO (09:57)
[2020-10-26] MEDS ORDERED: CEPH500T PO (09:57)
[2020-10-26 10:08] VITALS: BP 123/71
== END 2020-10-26 10:08 | disposition home or self-care (01) ==
LOC: EDUNIT# 08:20 → ER 08:22
DX: N20.1 Calculus of ureter (principal); E11.9 Type 2 diabetes mellitus without complications; Z79.84 Long term (current) use of oral hypoglycemic drugs; Z79.899 Other long term (current) drug therapy
CPT/HCPCS: 36415; 74018; 80048; 81000; 85007; 85027

== ENCOUNTER → 2020-10-27 | Outpatient (CLI) | payer BC ==
[~2020-10-27] MED LIST changes: +ACHYD1T PO; +CEPH500T PO; +DULA0.75 SQ; +KETO10TA PO; +NITR-65 PO
--- NOTE | 2020-10-27 14:22 | Diagnostic Imaging Report ---
INDICATION: Urinary tract stones Supine views of the abdomen show calculus seen in the left kidney which is stable compared to 10/26/2020 exam. There is a 4 x 6 mm calcification to the right of midline between the L4 and L5 transverse processes which has a shape similar to the right ureteral calculus seen on the CT from 10/25/2020. There is no bony abnormality. IMPRESSION: Left renal stone. Right renal calculus. The position appears similar to the CT from 10/25/2020. Dictated by: Dictated on workstation # [id number]
== END ==
LOC: RAD 12:29
PROVIDERS: ATTEND Urology
DX: N20.2 Calculus of kidney with calculus of ureter (principal)
CPT/HCPCS: 74018

== ENCOUNTER 2020-10-31 05:32 | Outpatient (CLI) | payer BC ==
[~2020-10-31] VITALS: Ht 185 cm; Wt 111.4 kg
[~2020-10-31 05:32] MED LIST changes: -DULA0.75 SQ; -KETO10TA PO; -NITR-65 PO
[2020-10-31] MEDS ORDERED: DULA0.75 SQ (08:31)
[2020-11-01] MEDS ORDERED: KETO10TA PO (08:55)
[2020-11-01] MEDS ORDERED: NITR-65 PO (08:55)
[2020-11-01] MEDS ORDERED: TMSL.4C PO (08:55)
== END 2020-10-31 08:55 | disposition home or self-care (01) ==
LOC: PREOP 05:32
PROVIDERS: ATTEND Urology
DX: Z01.818 Encounter for other preprocedural examination (principal)

== ENCOUNTER 2020-11-01 06:17 | Day surgery (SDC) | payer BC ==
[~2020-11-01] VITALS: Ht 185 cm; Wt 111.4 kg
[2020-11-01] VITALS (9 sets, daily range): BP systolic 100–128; BP diastolic 58–87
[~2020-11-01 06:17] MED LIST changes: +DULA0.75 SQ
[2020-11-01] MEDS ORDERED: cefTRIAXone 1,000 MG in WATER (STERILE) FOR INJECTION 10 ML IV ONE (06:30)
[2020-11-01] MEDS: LACTATED RINGERS 1,000 ML IV PRN ×2 (06:51→07:25)
[2020-11-01] MEDS ORDERED: LIDOCAINE PF 2% 5 ML (XYLOCAINE) VIAL ONE (06:59)
[2020-11-01] MEDS ORDERED: proPOfol 200 MG/20 ML (DIPRIVAN) VIAL IV ONE (06:59)
[2020-11-01] MEDS ORDERED: fentaNYL INJ 100 MCG/2 ML AMP ONE (06:59)
[2020-11-01] MEDS ORDERED: MIDAZOLAM 2 MG/2 ML (VERSED) VIAL ONE (06:59)
--- NOTE | 2020-11-01 07:01 | Progress Note-Pre Operative ---
Pre-Operative Progress Note H&P Reviewed The H&P was reviewed, patient examined and no changes noted. Date Seen by Provider: Nov 01, 2020 Time Seen by Provider: 07:01 Date H&P Reviewed: Nov 01, 2020 Time H&P Reviewed: 07:01 Pre-Operative Diagnosis: RT PROXIMAL URETERAL STONE BELKIS VALENTE MD Nov 01, 2020 07:01
[2020-11-01] MEDS ORDERED: KETOROLAC 30 MG/ML VIAL ONE (07:06)
[2020-11-01] MEDS ORDERED: FUROSEMIDE 40 MG/4 ML INJ (LASIX) ONE (07:06)
[2020-11-01] MEDS ORDERED: ONDANSETRON 4 MG/2 ML (SDV) Z0FRAN ONE (07:06)
--- NOTE | 2020-11-01 07:11 | Diagnostic Imaging Report ---
REASON FOR EXAM: ESWL COMPARISON: 10/27/2020. TECHNIQUE: frontal supine view of the abdomen FINDINGS: There is no change in the calcification in the right lower quadrant lateral to the L4 vertebral body. Multiple phleboliths are seen in the pelvis. Nonobstructing calculi are visualized overlying the mid left kidney measuring up to 0.6 cm. IMPRESSION: 1. Stable appearance of the suspected urolithiasis in the right lower quadrant lateral to the L4 vertebral body measuring 0.6 cm. 2. Nonobstructing calculi in the mid left kidney. Dictated by: Dictated on workstation # [id number]
--- NOTE | 2020-11-01 07:24 | Progress Note-Post Operative ---
Post-Operative Progess Note Surgeon (s)/Alteration Workroom Supervisor (s) Surgeon BELKIS VALENTE MD Alteration Workroom Supervisor: NONE Pre-Operative Diagnosis RT PROXIMAL URETERAL STONE Post-Operative Diagnosis SAME Procedure & Operative Findings Date of Procedure 11/01/20 Procedure Performed/Findings RT ESWL Anesthesia Type GENERAL Estimated Blood Loss Estimated blood loss (mL): NONE Specimens/Packing Specimens Removed NONE Packing: NONE BELKIS VALENTE MD Nov 01, 2020 07:24
--- NOTE | 2020-11-01 07:26 | Discharge Inst-Urology ---
Discharge Inst-Urology Reconcile Patient Problems Problems Reviewed?: Yes Final Diagnosis RT PROXIMAL URETERAL STONE Patient Instructions/Follow Up Plan/Assessment/Instructions Please make appointment to been seen in office Tuesday 11/14, KUB prior to it. KUB on way home Post ESWL instructions Increase oral fluids for 48 hours and then as needed. Diet and Activity as tolerated. If questions or concerns contact your physician Or seek help at emergency department. BELKIS VALENTE MD Nov 01, 2020 07:26
[2020-11-01] MEDS ORDERED: PHENYLEPHRINE 100 MCG/ML 10 ML (ANESTHESIA) SYR ONE (07:32)
[2020-11-01] MEDS ORDERED: SEVOFLURANE (ULTANE) 15 ML INHAL SOLN ONE (07:48)
[2020-11-01] MEDS ORDERED: MEPERIDINE (DEMEROL) INJ 50 MG/ML IVP ONE (08:15)
[2020-11-01] MEDS ORDERED: ONDANSETRON 4 MG/2 ML (SDV) Z0FRAN IVP PRN (08:15)
[2020-11-01] MEDS ORDERED: morphine INJ 10 MG/ML 1ML (SYR OR VIAL) IVP ONE (08:15)
[2020-11-01] MEDS ORDERED: KETO10TA PO (08:55)
[2020-11-01] MEDS ORDERED: TMSL.4C PO (08:55)
[2020-11-01] MEDS ORDERED: NITR-65 PO (08:55)
--- NOTE | 2020-11-01 08:56 | Anesthesia-General Post-Op ---
General Post Op Complications Complications None Follow Up Care/Instructions Patient Instructions None needed. Anesthesia/Patient Condition Patient Condition Patient is doing well, no complaints, stable vital signs, no apparent adverse anesthesia problems. No complications reported per nursing. TIERRA VOGT CRNA Nov 01, 2020 08:56
--- NOTE | 2020-11-01 09:33 | Diagnostic Imaging Report ---
HISTORY: Post lithotripsy, right flank. COMPARISON: Radiographs from the same day. TECHNIQUE: Frontal views of the abdomen. FINDINGS: The calcification at the inferior pole of the left kidney appears unchanged since the prior exam. There is a calcification along the expected course of the right ureter at the L4 vertebral level which is unchanged since the prior study. Multiple calcifications are seen at the pelvis which may represent phleboliths. IMPRESSION: Redemonstrated calcifications along the course of the right ureter and at the inferior left kidney. Dictated by: Dictated on workstation # [id number]
--- NOTE | 2020-11-01 13:28 | OPERATIVE REPORT ---
DATE OF SERVICE: 11/01/2020 PREOPERATIVE DIAGNOSIS: Right proximal ureteral stone. POSTOPERATIVE DIAGNOSIS: Right proximal ureteral stone. OPERATION PERFORMED: Right ESWL. SURGEON: Long Valente MD. ANESTHESIA: General. COMPLICATIONS: None. DESCRIPTION OF PROCEDURE: Under satisfactory general anesthesia, the patient in supine position on the ESWL table, the right proximal ureteral stone was localized. Shocks were delivered at kV of 6 to 7. A total of 3000 shocks completely fragmented the stone that was hardly visualized. The patient received 40 mg of Lasix and 30 mg of Toradol IV. He tolerated the procedure and anesthesia well and was sent to recovery room in a stable condition. CC: Dr. Hand - requested, unable to deliver. Job ID: [id number] DocumentID: [id number] Dictated Date: 11/01/2020 07:42:08 Yacht Builder Date: 11/01/2020 13:27:40 Dictated By: LONG VALENTE MD
== END 2020-11-01 09:35 | disposition home or self-care (01) ==
LOC: SDC 06:17
PROVIDERS: ATTEND Urology
DX: N20.1 Calculus of ureter (principal); E11.9 Type 2 diabetes mellitus without complications; N52.8 Other male erectile dysfunction; E66.9 Obesity, unspecified; Z68.32 Body mass index [BMI] 32.0-32.9, adult; Z79.84 Long term (current) use of oral hypoglycemic drugs; Z11.2 Encounter for screening for other bacterial diseases
CPT/HCPCS: 74018; 82947; 87081

== ENCOUNTER → 2020-11-14 | Outpatient (CLI) | payer BC ==
[~2020-11-14] MED LIST changes: +KETO10TA PO; +NITR-65 PO
--- NOTE | 2020-11-14 15:47 | Diagnostic Imaging Report ---
INDICATION: Nephrolithiasis KUB 1:28 PM There is a 7 x 3 mm calcification in the right mid ureter just below the transverse process of L4. This may be a calculus or calculi in the ureter. There are multiple phleboliths in the pelvis. There is a calcification inferior pole of left kidney measuring 8 x 4 mm. IMPRESSION: Left nephrolithiasis. Right ureterolithiasis. No significant change compared to 11/01/2020. Dictated by: Dictated on workstation # [id number]
== END ==
LOC: RAD 13:03
PROVIDERS: ATTEND Urology
DX: N20.2 Calculus of kidney with calculus of ureter (principal)
CPT/HCPCS: 74018

== ENCOUNTER → 2020-11-28 | Outpatient (CLI) | payer BC ==
[~2020-11-28] MED LIST changes: +PHEN-640 PO; +SEMA1PEN3 SQ
--- NOTE | 2020-11-28 13:13 | Diagnostic Imaging Report ---
INDICATION: Kidney stones Supine views of the abdomen is compared with a prior study from 11/14/2020. Again seen is a small elongated calcification near the level of the right transverse process of L4 which is stable compared to the prior exam. 3 x 8 mm calculus in the left kidney which is stable. The bowel gas pattern is within normal limits. No mass is evident. There is no acute bony abnormality. IMPRESSION: Stable bilateral calcifications. Dictated by: Dictated on workstation # [id number]
== END ==
LOC: RAD 12:41
PROVIDERS: ATTEND Urology
DX: N20.2 Calculus of kidney with calculus of ureter (principal)
CPT/HCPCS: 74018

== ENCOUNTER 2020-11-29 07:05 | Outpatient (CLI) | payer BC ==
[~2020-11-29] VITALS: Ht 185 cm; Wt 111.4 kg
[~2020-11-29 07:05] MED LIST changes: -PHEN-640 PO; -SEMA1PEN3 SQ
[2020-11-29] MEDS ORDERED: SEMA1PEN3 SQ (07:20)
[2020-11-29] MEDS ORDERED: DULA0.75 SQ (07:35)
--- NOTE | 2020-11-29 12:16 | Discharge Inst-Urology ---
Discharge Inst-Urology Patient Instructions/Follow Up Plan/Assessment/Instructions Please make appointment to been seen in office Tuesday 12/12, OCTAVIANO prior to it. KUB on way home Patient to strain all urines and save fragments and bring to office appointment Increase oral fluids for 48 hours and then as needed. Diet and Activity as tolerated. If questions or concerns contact your physician Or seek help at emergency department. BELKIS VALENTE MD Nov 29, 2020 12:16
[2020-11-29] MEDS ORDERED: NITR-65 PO (13:01)
[2020-11-29] MEDS ORDERED: TMSL.4C PO (13:01)
[2020-11-29] MEDS ORDERED: KETO10TA PO (13:01)
[2020-11-29] MEDS ORDERED: PHEN-640 PO (13:01)
== END 2020-11-29 07:29 | disposition home or self-care (01) ==
LOC: PREOP 07:05
PROVIDERS: ATTEND Urology
DX: Z01.818 Encounter for other preprocedural examination (principal)

== ENCOUNTER 2020-11-29 08:23 | Day surgery (SDC) | payer BC ==
[~2020-11-29] VITALS: Ht 185 cm; Wt 111.4 kg
[2020-11-29] VITALS (9 sets, daily range): BP systolic 103–129; BP diastolic 77–87
[~2020-11-29 08:23] MED LIST changes: +SEMA1PEN3 SQ
[2020-11-29] MEDS ORDERED: cefTRIAXone 1,000 MG in WATER (STERILE) FOR INJECTION 10 ML IV ONE (08:45)
[2020-11-29] MEDS: LACTATED RINGERS 1,000 ML IV PRN ×2 (08:50→11:01)
--- NOTE | 2020-11-29 08:51 | Progress Note-Pre Operative ---
Pre-Operative Progress Note H&P Reviewed The H&P was reviewed, patient examined and no changes noted. Date Seen by Provider: Nov 29, 2020 Time Seen by Provider: 08:50 Date H&P Reviewed: Nov 29, 2020 Time H&P Reviewed: 08:50 Pre-Operative Diagnosis: RT URETERAL STONE BELKIS VALENTE MD Nov 29, 2020 08:51
--- NOTE | 2020-11-29 08:53 | Diagnostic Imaging Report ---
EXAMINATION: Abdomen, 1 view. HISTORY: ESWL. COMPARISON: 11/28/2020. FINDINGS: There is a moderate amount of gas and stool throughout the colon. Nonobstructive bowel gas pattern. Stable appearance of a 1.1 cm calcification overlying the left kidney. Stable 1.1 cm calcification overlying the right mid abdomen adjacent to the L4 transverse process. The osseous structures are intact. IMPRESSION: Stable appearance of the calcifications in the left kidney and right mid abdomen compared to 11/28/2020. Dictated by: Dictated on workstation # [id number]
[2020-11-29] MEDS ORDERED: LIDOCAINE PF 2% 5 ML (XYLOCAINE) VIAL ONE (10:34)
[2020-11-29] MEDS ORDERED: proPOfol 200 MG/20 ML (DIPRIVAN) VIAL IV ONE (10:34)
[2020-11-29] MEDS ORDERED: ONDANSETRON 4 MG/2 ML (SDV) Z0FRAN ONE (10:34)
[2020-11-29] MEDS ORDERED: ROCURONIUM 10 MG/ML 5 ML SYRINGE IV ONE (10:34)
[2020-11-29] MEDS ORDERED: MIDAZOLAM 2 MG/2 ML (VERSED) VIAL ONE (10:35)
[2020-11-29] MEDS ORDERED: fentaNYL INJ 100 MCG/2 ML AMP ONE (10:35)
--- NOTE | 2020-11-29 11:03 | Progress Note-Post Operative ---
Post-Operative Progess Note Surgeon (s)/Handmade Tile Artist (s) Surgeon BELKIS VALENTE MD Handmade Tile Artist: NONE Pre-Operative Diagnosis RT URETERAL STONE Post-Operative Diagnosis SAME Procedure & Operative Findings Date of Procedure 11/29/20 Procedure Performed/Findings CYSTOSCOPY, RT URETEROSCOPY WITH STONE LITHOTRIPSY Anesthesia Type GENERAL Estimated Blood Loss Estimated blood loss (mL): NONE Specimens/Packing Specimens Removed NONE Packing: NONE BELKIS VALENTE MD Nov 29, 2020 11:03
--- NOTE | 2020-11-29 11:04 | Discharge Inst-Urology ---
Discharge Inst-Urology Reconcile Patient Problems Problems Reviewed?: Yes Final Diagnosis RT URETERAL STONE Patient Instructions/Follow Up Plan/Assessment/Instructions Please make appointment to been seen in office Tuesday 12/12, KUB prior to it KUB on way home Patient to strain all urine, save fragments passed and bring to office appointment Increase oral fluids for 48 hours and then as needed. Diet and Activity as tolerated. If questions or concerns contact your physician Or seek help at emergency department. BELKIS VALENTE MD Nov 29, 2020 11:04
[2020-11-29] MEDS ORDERED: cefTRIAXone 1,000 MG VIAL ONE (11:06)
[2020-11-29] MEDS ORDERED: FUROSEMIDE 40 MG/4 ML INJ (LASIX) ONE (11:44)
[2020-11-29] MEDS ORDERED: KETOROLAC 30 MG/ML VIAL ONE (11:44)
[2020-11-29] MEDS ORDERED: SEVOFLURANE (ULTANE) 15 ML INHAL SOLN ONE (11:46)
[2020-11-29] MEDS ORDERED: morphine INJ 10 MG/ML 1ML (SYR OR VIAL) IVP ONE (12:00)
[2020-11-29] MEDS ORDERED: HYDROmorphone 2 MG/ML VIAL (DILAUDID) IV ONE (12:00)
[2020-11-29] MEDS ORDERED: MEPERIDINE (DEMEROL) INJ 50 MG/ML IVP ONE (12:00)
[2020-11-29] MEDS ORDERED: ONDANSETRON 4 MG/2 ML (SDV) Z0FRAN IVP PRN (12:00)
--- NOTE | 2020-11-29 12:28 | Anesthesia-General Post-Op ---
General Patient Condition Mental Status/LOC: Same as Preop Cardiovascular: Satisfactory Nausea/Vomiting: Absent Respiratory: Satisfactory Pain: Controlled Complications: Absent Post Op Complications Complications None Follow Up Care/Instructions Patient Instructions None needed. Anesthesia/Patient Condition Patient Condition Patient is doing well, no complaints, stable vital signs, no apparent adverse anesthesia problems. No complications reported per nursing. TIERRA VOGT CRNA Nov 29, 2020 12:28
[2020-11-29] MEDS ORDERED: TMSL.4C PO (13:01)
[2020-11-29] MEDS ORDERED: PHEN-640 PO (13:01)
[2020-11-29] MEDS ORDERED: NITR-65 PO (13:01)
[2020-11-29] MEDS ORDERED: KETO10TA PO (13:01)
--- NOTE | 2020-11-29 13:59 | Diagnostic Imaging Report ---
INDICATION: Kidney stone. COMPARISON: 11/29/2020 at 0842 hours. FINDINGS: There is 11 mm calcification in the inferior pole of the left kidney. Round calcifications are seen adjacent to the L4-L5 vertebral body. Bowel gas pattern is stable. There is no unexpected radiopaque foreign body. IMPRESSION: Calcification in the left kidney. No unexpected radiopaque foreign body. Dictated by: Dictated on workstation # [id number]
--- NOTE | 2020-11-29 20:31 | OPERATIVE REPORT ---
DATE OF SERVICE: 11/29/2020 PREOPERATIVE DIAGNOSES: 1. Right proximal ureteral stone. 2. Left renal stone. POSTOPERATIVE DIAGNOSES: 1. Right proximal ureteral stone. 2. Left renal stone. OPERATIONS PERFORMED: Right ureteroscopy with stone lithotripsy. SURGEON: Long Valente MD. ANESTHESIA: General. COMPLICATIONS: None. DESCRIPTION OF PROCEDURE: The patient in lithotomy position, genitalia were prepped and draped in the usual sterile fashion. Cystoscope was introduced under vision. The anterior urethra was normal. The prostate was mildly obstructing with mild bladder neck obstruction. Bladder was entered, revealed some trabeculations. Ureteric orifices were normal in shape, size and configuration with clear efflux, sluggish on the right side. Using the foroblique lens, I dilated the right ureteral orifice intramural portion to accommodate a 6.9 Slovenian semi-rigid ureteroscope. I went up to the level of the stone, visualized and broke it up completely first with power of 5 until I broke it in four pieces and then power of 12 to finish the job. I went beyond the stone. There were no more stones or fragments . I removed the ureteroscope, reinserted the cystoscope to empty the bladder. The patient received 40 mg of Lasix and 30 mg of Toradol IV at the end of the procedure. He tolerated the procedure and anesthesia well and was sent to recovery room in a stable condition. CC: Dr. Hand - requested, unable to deliver. Job ID: [id number] DocumentID: [id number] Dictated Date: 11/29/2020 12:13:53 Branch Service Leader Date: 11/29/2020 20:30:52 Dictated By: LONG VALENTE MD
== END 2020-11-29 13:35 | disposition home or self-care (01) ==
LOC: SDC 08:23
PROVIDERS: ATTEND Urology
DX: N20.2 Calculus of kidney with calculus of ureter (principal); Z11.2 Encounter for screening for other bacterial diseases; E11.9 Type 2 diabetes mellitus without complications; N52.9 Male erectile dysfunction, unspecified; Z79.84 Long term (current) use of oral hypoglycemic drugs
CPT/HCPCS: 74018; 76000; 82947; 87081

== ENCOUNTER → 2020-12-12 | Outpatient (CLI) | payer BC ==
[~2020-12-12] MED LIST changes: +PHEN-640 PO
--- NOTE | 2020-12-12 15:14 | Diagnostic Imaging Report ---
INDICATION: Right-sided ureteral stone. TIME OF EXAM: 2:24 PM. COMPARISON: Correlation is made with the prior radiograph from 11/29/2020. FINDINGS: Calcific density overlies the lower pole of the left kidney, similar to the prior exam. Calcifications of the pelvis appear stable and are likely phleboliths. No definite calculus along the expected course of the ureters is seen. Calcifications distal to the right and lateral of the L4-L5 disc space on the prior exam are not well visualized on today's study. The bowel gas pattern is unremarkable. IMPRESSION: Left-sided renal calculi. Calculi in the course of the right ureter at the L4-5 level on the prior study are not appreciated on today's study and may have passed. Dictated by: Dictated on workstation # [id number]
== END ==
LOC: RAD 14:07
PROVIDERS: ATTEND Urology
DX: N20.2 Calculus of kidney with calculus of ureter (principal)
CPT/HCPCS: 74018

== ENCOUNTER 2020-12-13 07:31 | Day surgery (SDC) | payer BC ==
[2020-12-13] VITALS (9 sets, daily range): BP systolic 96–121; BP diastolic 64–87
[~2020-12-13] VITALS: Ht 185.5 cm; Wt 109.1 kg
--- NOTE | 2020-12-13 08:02 | Progress Note-Pre Operative ---
Pre-Operative Progress Note H&P Reviewed The H&P was reviewed, patient examined and no changes noted. Date Seen by Provider: Dec 13, 2020 Time Seen by Provider: 08:02 Date H&P Reviewed: Dec 13, 2020 Time H&P Reviewed: 08:02 Pre-Operative Diagnosis: LT RENAL STONE BELKIS VALENTE MD Dec 13, 2020 08:02
[2020-12-13] MEDS ORDERED: LACTATED RINGERS 1,000 ML IV PRN (08:15)
[2020-12-13] MEDS ORDERED: cefTRIAXone 1,000 MG in WATER (STERILE) FOR INJECTION 10 ML IV ONE (08:15)
--- NOTE | 2020-12-13 08:20 | Diagnostic Imaging Report ---
INDICATION: Flank pain. Right-sided kidney stone. Comparison with 12/12/2020. FINDINGS: Calculus in the lower pole calyx of the left kidney again noted. Subtle calcification again noted on the right just lateral to the L5 vertebral body and below the transverse process. IMPRESSION: There does appear to be continued stone in the distal right ureter. This measures approximately 4 mm. Dictated by: Dictated on workstation # [id number]
--- NOTE | 2020-12-13 08:51 | Progress Note-Post Operative ---
Post-Operative Progess Note Surgeon (s)/Building Drafting Officer (s) Surgeon BELKIS VALENTE MD Building Drafting Officer: NONE Pre-Operative Diagnosis LT RENAL STONE Post-Operative Diagnosis SAME Procedure & Operative Findings Date of Procedure 12/13/20 Procedure Performed/Findings LT ESWL Anesthesia Type GENERAL Estimated Blood Loss Estimated blood loss (mL): NONE Specimens/Packing Specimens Removed NONE Packing: NONE BELKIS VALENTE MD Dec 13, 2020 08:51
--- NOTE | 2020-12-13 08:52 | Discharge Inst-Urology ---
Discharge Inst-Urology Reconcile Patient Problems Problems Reviewed?: Yes Final Diagnosis LT RENAL STONE Patient Instructions/Follow Up Plan/Assessment/Instructions Please make appointment to been seen in office in 3 weeks. KUB prior to it KUB on way home Post ESWL instructions Increase oral fluids for 48 hours and then as needed. Diet and Activity as tolerated. If questions or concerns contact your physician Or seek help at emergency department. BELKIS VALENTE MD Dec 13, 2020 08:52
[2020-12-13] MEDS ORDERED: MIDAZOLAM 2 MG/2 ML (VERSED) VIAL ONE (10:01)
[2020-12-13] MEDS ORDERED: fentaNYL INJ 100 MCG/2 ML AMP ONE (10:02)
[2020-12-13] MEDS ORDERED: LIDOCAINE PF 2% 5 ML (XYLOCAINE) VIAL ONE (10:31)
[2020-12-13] MEDS ORDERED: FUROSEMIDE 40 MG/4 ML INJ (LASIX) ONE (10:31)
[2020-12-13] MEDS ORDERED: proPOfol 200 MG/20 ML (DIPRIVAN) VIAL IV ONE (10:31)
[2020-12-13] MEDS ORDERED: ONDANSETRON 4 MG/2 ML (SDV) Z0FRAN ONE (10:31)
[2020-12-13] MEDS ORDERED: KETOROLAC 30 MG/ML VIAL ONE (10:31)
[2020-12-13] MEDS ORDERED: SEVOFLURANE (ULTANE) 15 ML INHAL SOLN ONE (10:43)
--- NOTE | 2020-12-13 11:25 | Anesthesia-General Post-Op ---
General Patient Condition Mental Status/LOC: Same as Preop Cardiovascular: Satisfactory Nausea/Vomiting: Absent Respiratory: Satisfactory Pain: Controlled Complications: Absent Post Op Complications Complications None Follow Up Care/Instructions Patient Instructions None needed. Anesthesia/Patient Condition Patient Condition Patient is doing well, no complaints, stable vital signs, no apparent adverse anesthesia problems. No complications reported per nursing. VINH FARFAN CRNA Dec 13, 2020 11:24
[2020-12-13] MEDS ORDERED: fentaNYL INJ 100 MCG/2 ML AMP IVP ONE (11:30)
[2020-12-13] MEDS ORDERED: morphine INJ 10 MG/ML 1ML (SYR OR VIAL) IVP ONE (11:30)
[2020-12-13] MEDS ORDERED: ONDANSETRON 4 MG/2 ML (SDV) Z0FRAN IVP PRN (11:30)
--- NOTE | 2020-12-13 12:20 | Diagnostic Imaging Report ---
Indication: Status post lithotripsy. TIME OF EXAM: 12:00 PM Correlation is made with radiograph earlier the same day. The bowel gas pattern is unremarkable. There appears to have been fragmentation of the calculus overlying lower pole left kidney since this morning. Calcific densities in the pelvis are unchanged and likely represent phleboliths. No definite calculi along the course of the ureters are identified. IMPRESSION: Fragmentation of lower pole left renal calculus. Dictated by: Dictated on workstation # [id number]
--- NOTE | 2020-12-13 18:43 | OPERATIVE REPORT ---
DATE OF SERVICE: 12/13/2020 PREOPERATIVE DIAGNOSIS: Left renal stone. POSTOPERATIVE DIAGNOSIS: Left renal stone. OPERATION PERFORMED: Left ESWL. SURGEON: Long Valente MD ANESTHESIA: General. COMPLICATIONS: None. DESCRIPTION OF PROCEDURE: Under satisfactory general anesthesia, the patient in supine position on the ESWL table, the left renal stone was localized. Shocks were delivered at kV of 6. Total of 3000 shocks fragmented the stone well. The patient received 40 mg of Lasix and 30 mg of Toradol IV at the end of the procedure. He tolerated the procedure and anesthesia well and was sent to recovery room in a stable condition. CC: Dr. Hand - requested, unable to deliver. Job ID: [id number] DocumentID: [id number] Dictated Date: 12/13/2020 10:41:29 Or Rn Date: 12/13/2020 18:43:12 Dictated By: LONG VALENTE MD
== END 2020-12-13 12:40 | disposition home or self-care (01) ==
LOC: SDC 07:31
PROVIDERS: ATTEND Urology
DX: N20.0 Calculus of kidney (principal); Z11.2 Encounter for screening for other bacterial diseases; E11.9 Type 2 diabetes mellitus without complications; N40.0 Benign prostatic hyperplasia without lower urinary tract symptoms; N52.9 Male erectile dysfunction, unspecified; Z79.84 Long term (current) use of oral hypoglycemic drugs
CPT/HCPCS: 74018; 82947; 87081

== ENCOUNTER → 2020-12-29 | Outpatient (CLI) | payer BC ==
--- NOTE | 2020-12-29 16:06 | Diagnostic Imaging Report ---
EXAMINATION: Abdomen 1 view HISTORY: renal stone COMPARISON: 12/13/2020 FINDINGS: There is a moderate amount of gas and stool throughout the colon. Nonobstructive bowel gas pattern. There is a 1.0 cm calcification overlying the left kidney, unchanged from 12/13/2020. The osseous structures are intact. IMPRESSION: Stable appearance of a 1.0 cm calcification overlying the left kidney. Dictated by: Dictated on workstation # [id number]
== END ==
LOC: RAD 14:41
PROVIDERS: ATTEND Urology
DX: N20.0 Calculus of kidney (principal)
CPT/HCPCS: 74018

== ENCOUNTER 2021-01-19 09:00 | Outpatient (RCR) | payer BC | END 2021-02-10 | disposition home or self-care (01) | LOC: LAB 09:00 | PROVIDERS: ATTEND Urology | DX: N20.9 Urinary calculus, unspecified (principal) | CPT/HCPCS: 82140; 82340; 82507; 82570; 83735; 83945; 83986; 84105; 84133; 84300; 84392; 84560 ==